=== PATIENT | female | born 1960 | race Caucasian/White ===

== ENCOUNTER 2020-10-02 14:38 | Inpatient (IN) | payer BC ==
[~2020-10-02 14:38] MED LIST: Iopamidol-370 76% 500 ML 1 ML ONE
[2020-10-02 14:55] LABS: #Basophils 0.1 thou/uL (0.0-0.2); #Eosinphils 0.1 thou/uL (0.0-0.7); #Lymphocytes 2.2 thou/uL (1.20-3.40); #Monocytes 0.4 thou/uL (0.11-0.59); #Neutrophils 3.5 thou/uL (1.40-6.50); %Basophils 1.1 % (0.0-1.0); %Eosinophils 0.9 % (0.0-10.0); %Monocytes 6.8 % (0.0-10.0); %Neutrophils 56.2 % (42.0-75.0); Hemoglobin 13.2 g/dL (12.0-16.0); Mean Corpuscular HGB CONC 33.9 g/dL (32.0-36.0); Mean Corpuscular Hemoglobin 34.4 pg (27.0-31.0); Mean Platelet Volume 6.6 fL (7.4-10.4); Platelet Count 204 thou/uL (130-400); RBC Distribution Width 11.9 % (11.5-14.5); Red Blood Cell (RBC) Count 3.83 mill/uL (4.20-5.40); White Blood Cell (WBC) Count 6.1 thou/uL (4.8-10.8)
[2020-10-02 15:27] LABS: INR-International Normal Ratio 0.9; Prothrombin Time 12.6 sec (12.0-14.7)
[2020-10-02 15:28] LABS: PTT 30.7 sec (22.9-36.1)
[2020-10-02 15:34] LABS: ALT (SGPT) 27 U/L (8-55); AST (SGOT) 40 U/L (5-34); Albumin 4.3 g/dL (3.5-5.0); Alcohol Less than 10 mg/dL (Less than 10); Alkaline Phosphatase 52 U/L (40-110); Anion Gap 16 mmol/L (10-20); BUN (Urea Nitrogen) 14 mg/dL (9.8-20.1); Bilirubin, Total 0.4 mg/dL (0.2-1.2); Calc. Creatinine Clearance 0 mL/min (70-130); Calcium 8.9 mg/dL (7.8-10.44); Carbon Dioxide 21 mmol/L (22-29); Chloride 106 mmol/L (98-107); Globulin 2.5 g/dL (2.4-3.5); Glucose 146 mg/dL (70-105); Lipase 54 U/L (8-78); Potassium 4.3 mmol/L (3.5-5.1); Protein, Total 6.8 g/dL (6.0-8.3); Sodium 139 mmol/L (136-145)
[2020-10-02] MEDS ORDERED: Fentanyl 100 MCG/2 ML VIAL ONE (15:39)
[2020-10-02] MEDS ORDERED: Scopolamine 1.5 mg/72 hour Patch TD SCH ×2 (20:00→22:00)
[2020-10-02] MEDS ORDERED: Cyclobenzaprine 10 MG TAB PO PRN (21:28)
[2020-10-02] MEDS ORDERED: Dextrose 50% Abboject 50 ML SYRINGE SLOW IVP PRN (21:28)
[2020-10-02] MEDS ORDERED: Ondansetron PF 4 MG/2 ML Vial IVP PRN (21:28)
[2020-10-02] MEDS ORDERED: Dextrose 5% in Water 1,000 ML IV PRN (21:28)
[2020-10-02] MEDS ORDERED: hydrALAZINE 20 MG/ML VIAL SLOW IVP PRN (21:28)
[2020-10-02] MEDS ORDERED: Ondansetron ODT 4 MG TAB PO PRN (21:28)
[2020-10-02] MEDS ORDERED: traMADol HCl 50 MG TAB PO PRN (21:28)
[2020-10-02 21:34] VITALS: BMI 21.5
[2020-10-02] MEDS ORDERED: Famotidine 20 MG TAB PO SCH (21:45)
[2020-10-02] MEDS: traMADol HCl 50 MG TAB PO PRN (21:56)
[2020-10-02] MEDS: Sodium Chloride 0.9% 1,000 ML IV SCH (21:59)
[2020-10-02] MEDS: Acetaminophen 325 MG TAB PO SCH (23:50)
[2020-10-03] MEDS ORDERED: Morphine 2 MG/ML VIAL SLOW IVP SCH (01:00)
[2020-10-03 02:38] LABS: SARS-CoV-2 PCR by NAA Not Detected (NotDetected)
[2020-10-03 03:56] LABS: #Lymphocytes 1.9 thou/uL (1.20-3.40); #Monocytes 0.6 thou/uL (0.11-0.59); #Neutrophils 5.8 thou/uL (1.40-6.50); %Basophils 0.3 % (0.0-1.0); %Eosinophils 0.1 % (0.0-10.0); %Lymphocytes 22.6 % (21.0-51.0); %Monocytes 6.9 % (0.0-10.0); %Neutrophils 70.1 % (42.0-75.0); Hemoglobin 11.7 g/dL (12.0-16.0); Mean Corpuscular HGB CONC 34.3 g/dL (32.0-36.0); Mean Corpuscular Hemoglobin 34.8 pg (27.0-31.0); Mean Platelet Volume 6.5 fL (7.4-10.4); Platelet Count 167 thou/uL (130-400); Red Blood Cell (RBC) Count 3.36 mill/uL (4.20-5.40); White Blood Cell (WBC) Count 8.3 thou/uL (4.8-10.8)
[2020-10-03 04:19] LABS: Anion Gap 13 mmol/L (10-20); BUN (Urea Nitrogen) 8 mg/dL (9.8-20.1); Calc. Creatinine Clearance 83 mL/min (70-130); Calcium 8.2 mg/dL (7.8-10.44); Carbon Dioxide 22 mmol/L (22-29); Chloride 107 mmol/L (98-107); Glucose 102 mg/dL (70-105); Sodium 138 mmol/L (136-145)
[2020-10-03] MEDS: Acetaminophen 325 MG TAB PO SCH ×4 (06:31→23:52)
[2020-10-03] MEDS: traMADol HCl 50 MG TAB PO PRN ×2 (06:32→17:07)
[2020-10-03] MEDS: Sodium Chloride 0.9% 1,000 ML IV SCH ×3 (07:29→23:51)
[2020-10-03] MEDS: Rosuvastatin 10 MG TAB PO SCH (10:08)
[2020-10-03] MEDS: Famotidine 20 MG TAB PO SCH ×2 (10:08→20:44)
[2020-10-04] MEDS: Acetaminophen 325 MG TAB PO SCH (05:41)
[2020-10-04] MEDS: Sodium Chloride 0.9% 1,000 ML IV SCH ×2 (07:34→15:25)
[2020-10-04] MEDS: Rosuvastatin 10 MG TAB PO SCH (09:26)
[2020-10-04] MEDS ORDERED: Ibuprofen 800 MG TAB PO PRN (09:55)
[2020-10-04] MEDS ORDERED: Acetaminophen 500 MG TAB PO SCH (12:00)
[2020-10-04] MEDS ORDERED: Acetaminophen 325 MG TAB PO SCH (12:00)
[2020-10-04 15:55] VITALS: BP 110/68; TEMP 98.3
== END 2020-10-04 16:14 | disposition home or self-care (01) | DRG 84 ==
LOC: ERS 14:38 → IMCU/EMU 17:34 → SURG B 10-03 09:23
PROVIDERS: ADMIT Surgery; ATTEND Surgery
DX: S06.6X9A Traumatic subarachnoid hemorrhage with loss of consciousness of unspecified duration, initial encounter (principal); S06.5X9A Traumatic subdural hemorrhage with loss of consciousness of unspecified duration, initial encounter; Z20.822 Contact with and (suspected) exposure to COVID-19; E78.5 Hyperlipidemia, unspecified; E78.00 Pure hypercholesterolemia, unspecified; R40.2362 Coma scale, best motor response, obeys commands, at arrival to emergency department; R40.2142 Coma scale, eyes open, spontaneous, at arrival to emergency department; R40.2252 Coma scale, best verbal response, oriented, at arrival to emergency department; F17.210 Nicotine dependence, cigarettes, uncomplicated; S92.324A Nondisplaced fracture of second metatarsal bone, right foot, initial encounter for closed fracture; S92.334A Nondisplaced fracture of third metatarsal bone, right foot, initial encounter for closed fracture; S92.344A Nondisplaced fracture of fourth metatarsal bone, right foot, initial encounter for closed fracture; V80.010A Animal-rider injured by fall from or being thrown from horse in noncollision accident, initial encounter; Z98.51 Tubal ligation status
CPT/HCPCS: 36415; 70450; 71045; 71260; 72125; 72170; 74177; 80048; 80053; 80307; 83605; 83690; 84484; 85025; 85610; 85730; 87635; 93005; 96374; G0390; J2270; J2405; J3010; Q9967; U0003; U0005

== ENCOUNTER 2020-10-23 10:17 | Outpatient (CLI) | payer BC | END 2020-10-23 10:18 | disposition home or self-care (01) | LOC: CT 10:17 | PROVIDERS: ATTEND Surgery | DX: S06.5X0A Traumatic subdural hemorrhage without loss of consciousness, initial encounter (principal); S06.890A Other specified intracranial injury without loss of consciousness, initial encounter | CPT/HCPCS: 70450 ==

== ENCOUNTER 2021-12-01 12:36 | Outpatient (CLI) | payer BC ==
[2021-12-01 23:56] LABS: SARS-CoV-2 PCR by NAA Not Detected (NotDetected)
== END 2021-12-01 12:37 | disposition home or self-care (01) ==
LOC: LABBT 12:36
PROVIDERS: ATTEND Ophthalmology Retina Specialist
DX: Z20.822 Contact with and (suspected) exposure to COVID-19 (principal)
CPT/HCPCS: U0003; U0005

== ENCOUNTER 2021-12-02 07:16 | Day surgery (SDC) | payer BC ==
[2021-12-01 12:42] VITALS: BMI 20.9
[~2021-12-02 07:16] MED LIST changes: +EPINEPHrine 0.3 MG in Ophthalmic Irrigation Solution 500 ML IRR SCH; -Iopamidol-370 76% 500 ML 1 ML ONE; +Midazolam HCl 2 mg/2 ml Vial ONE; +fentaNYL Citrate/PF 100 MCG/2 ML SYRINGE ONE
[2021-12-02] MEDS ORDERED: Phenylephrine 2.5% Ophth Soln 5 ML BOT ONE (08:12)
[2021-12-02] MEDS ORDERED: Cyclopentolate 1% Opth Drop 2 ML BOT ONE (08:12)
[2021-12-02] MEDS ORDERED: Lidocaine 4% PF 5 ML AMP ONE (09:10)
[2021-12-02] MEDS ORDERED: PROPOFOL 200 MG/20 ML VIAL ONE (09:10)
[2021-12-02] MEDS ORDERED: Bupivacaine 0.75% 10 ML VIAL ONE (09:10)
[2021-12-02] MEDS ORDERED: Lidocaine 1% PF 5 ML VIAL ONE (09:10)
[2021-12-02] MEDS ORDERED: Maxitrol 0.1% Opth Oint 3.5 GM TUBE ONE (09:10)
[2021-12-02] MEDS ORDERED: Triamcinolone 40 MG/ML VIAL ONE (09:10)
[2021-12-02] MEDS ORDERED: CEFAZOLIN 1 GM VIAL ONE (09:10)
== END 2021-12-02 11:00 | disposition home or self-care (01) ==
LOC: SDC 07:16
PROVIDERS: ATTEND Ophthalmology Retina Specialist
PROC: 08QF3ZZ Repair Left Retina, Percutaneous Approach (ICD-10-PCS; principal; 2021-12-02)
PROC: 08T53ZZ Resection of Left Vitreous, Percutaneous Approach (ICD-10-PCS; principal; 2021-12-02)
DX: H33.022 Retinal detachment with multiple breaks, left eye (principal); H43.12 Vitreous hemorrhage, left eye; Z79.83 Long term (current) use of bisphosphonates; Z79.899 Other long term (current) drug therapy; Z91.041 Radiographic dye allergy status
CPT/HCPCS: 67025; J0171; J0690; J2250; J2704; J3301; J3490